=== PATIENT | male | born 1935 | race Caucasian/White ===

== ENCOUNTER 2016-10-25 17:02 | Emergency (ER) | payer OTHER, MEDICARE ==
[~2016-10-25] VITALS: Ht 185.4 cm; Wt 111.6 kg
[~2016-10-25 17:02] MED LIST: ASPIRIN81 M1 PO; ASPIRIN81 M2 PO; CARDIZEM30 MG PO; CATAPRES0.1 MG PO; CELEBREX100 MG PO; DILTIAZEM 24HR120 MG PO; FINASTERIDE5 MG PO; GLIPIZIDE5 M1 PO; GLIPIZIDE5 MG PO; GLUCOTROL XL2.5 MG PO; HYDRALAZINE HCL25 M1 NG; HYTRIN2 MG PO; LISINOPRIL5 MG PO; LOZOL2.5 MG PO; NORVASC10 MG PO; PLAVIX75 MG PO; PROSCAR5 MG PO; SANCTURA20 MG PO; ZESTRIL,PRINIVI40 MG PO; ZOCOR40 MG PO
[2016-10-25 20:17] VITALS: BP 186/102
== END 2016-10-25 20:19 | disposition home or self-care (01) ==
LOC: EME → EDBD 17:02 → EME 20:19
DX: K91.840 Postprocedural hemorrhage of a digestive system organ or structure following a digestive system procedure (principal); Z98.818 Other dental procedure status; Z79.82 Long term (current) use of aspirin; E11.9 Type 2 diabetes mellitus without complications; I10 Essential (primary) hypertension; Z87.891 Personal history of nicotine dependence
CPT/HCPCS: 99281; 99284

== ENCOUNTER 2017-04-08 18:35 | Emergency (ER) | payer OTHER, MEDICARE ==
[~2017-04-08] VITALS: Ht 185.4 cm; Wt 107.7 kg
[2017-04-08 19:14] LABS: EOSINOPHIL (%) 3.6 % (0-5); EOSINOPHIL COUNT 0.2 K/uL (0-0.3); HEMATOCRIT 42.5 % (38.0-50.0); IMMATURE GRANULOCYTE (%) 0.3 % (0.0-0.7); INSTRUMENT ABS NEUTROPHIL CT 4.6 K/uL; LYMPHOCYTE COUNT 0.9 K/uL (1.0-2.8); MCH 29.2 PG (29.0-34.0); MCHC 33.4 G/DL (30.0-36.0); MCV 87.3 FL (86-99); MEAN PLAT.VOLUME 10.4 uM^3 (9.0-12.4); MONOCYTE (%) 7.5 % (3-12); MONOCYTE COUNT 0.5 K/uL (0-0.8); NEUTROPHIL (%) 73.7 % (45-76); NEUTROPHIL COUNT 4.6 K/uL (1.8-6.4); PLATELET COUNT 149 K/uL (156-360); RBC DIS.WIDTH-CV 13.3 % (11.8-14.6); RBC DIS.WIDTH-SD 42.9 % (39-53); RED BLOOD COUNT 4.87 M/uL (4.00-5.50); WHITE BLOOD COUNT 6.2 K/uL (4.1-10.2)
[2017-04-08 19:23] LABS: CHLORIDE 104 mEq/L (99-109); POTASSIUM 4.2 mEq/L (3.7-5.4); SODIUM 137 mEq/L (136-147)
[2017-04-08 19:25] LABS: GLUCOSE 231 mg/dL (70-99)
[2017-04-08 19:26] LABS: ANION GAP 10 MEQ/L (2-14)
[2017-04-08 19:27] LABS: TOTAL BILIRUBIN 0.4 mg/dL (0.0-1.0)
[2017-04-08 19:29] LABS: ALKALINE PHOSPHATASE 90 IU/L (3-129); GFR ESTIMATE (CALCULATED) 44 mL/min/
[2017-04-08 19:30] LABS: UREA NITROGEN (BUN) 23 mg/dL (9-23)
[2017-04-08 19:34] LABS: TROP-I INTERPRETATION NEGATIVE; TROPONIN-I < 0.01 ng/mL (0.0-0.30)
[2017-04-09 00:48] VITALS: BP 144/84
== END 2017-04-09 00:49 | disposition home or self-care (01) ==
LOC: EME → EDBD 18:35 → EDSEX 18:35 → EME 18:35
PROVIDERS: Emergency Medicine
DX: R55 Syncope and collapse (principal); E11.9 Type 2 diabetes mellitus without complications; K21.9 Gastro-esophageal reflux disease without esophagitis; Z87.891 Personal history of nicotine dependence; Z79.84 Long term (current) use of oral hypoglycemic drugs
CPT/HCPCS: 80053; 83735; 84484; 85025; 93005; 99281; 99284